=== PATIENT | female | born 1965 | race Two or more races ===

== ENCOUNTER 2021-11-24 06:16 | Day surgery (SDC) | payer OTHER ==
[2021-11-24] MEDS ORDERED: NEURONTIN600 M1 PO (09:11)
[2021-11-24] MEDS ORDERED: POLY119PG PO (09:11)
[2021-11-24] MEDS ORDERED: PERCOCET 5-3251 EACH PO (09:11)
== END 2021-11-24 15:03 | disposition home or self-care (01) ==
LOC: CIR.AMB 06:16
PROVIDERS: ATTEND Surgery
DX: K40.90 Unilateral inguinal hernia, without obstruction or gangrene, not specified as recurrent (principal); I10 Essential (primary) hypertension; Z86.16 Personal history of COVID-19; Z20.822 Contact with and (suspected) exposure to COVID-19
CPT/HCPCS: 49650; C1781

== ENCOUNTER 2025-06-11 07:00 | Inpatient (IN) | payer OTHER ==
[2025-06-09 09:10] VITALS: BP 126/82
[2025-06-09 10:03] LABS: BASO % 0.5 % (0.1-1.2); EOS # 0.14 (0.04-0.54); EOS % 1.1 % (0.7-7.0); LYMPH # 1.34 (1.18-3.74); LYMPH % 10.1 % (19.3-53.1); MEAN PLATELET VOLUME 9.40 fl (9.4-12.4); MONO # 1.06 (0.24-0.82); MONO % 8.0 % (4.7-12.5); NEUT # 10.61 (1.56-6.13); NEUT % 79.7 % (34.0-71.1); RED CELL DISTRIBUTION WIDTH 13.7 % (11.6-14.4)
[2025-06-09 10:21] LABS: URINE APPEARANCE Clear; URINE BILIRRUBIN Negative (NEGATIVE); URINE BLOOD Small; URINE COLOR Yellow; URINE GLUCOSE Negative (NEGATIVE); URINE KETONE Negative (NEGATIVE); URINE LEUKOCYTE Small; URINE NITRATE Negative; URINE PROTEIN Negative (NEGATIVE); URINE UROBILINOGEN 0.2 E.U./dl
[2025-06-09 10:24] LABS: URINE BACTERIA 8.3 uL (0.0-1933); URINE EPITHELIAL CELLS 3.5 uL (0.0-38.8); URINE RBC 3.2 uL (0.0-20.8); URINE WBC 37.8 uL (0.0-23.2)
[2025-06-09 10:30] LABS: URINE CAST 0.00 uL (0.0-1.40)
[2025-06-09 10:38] LABS: INR 0.95
[2025-06-09 10:43] LABS: BUN CREA RATIO 15.0 (7.0-25.0); CREATININE SERUM 1.08 mg/dL (0.70-1.30); GFR 70.22; GLUCOSE FASTING 86.0 mg/dL (65-100); OSMOLALITY SERUM 285.0 MOSM/KG (275-295)
[~2025-06-11] VITALS: Ht 182.9 cm; Wt 81.6 kg
[~2025-06-11 07:00] MED LIST: NEURONTIN600 M1 PO; PERCOCET 5-3251 EACH PO; POLY119PG PO
[2025-06-11] MEDS ORDERED: CEFTRIAXONE SODIUM 2,000 MG VIAL ONE (07:23)
[2025-06-11] MEDS ORDERED: METRONIDAZOLE/SODIUM CHLORIDE 500 MG/100 ML PIGGYBACK IV ONE (07:23)
[2025-06-11] MEDS ORDERED: BUPIVACAINE HCL/MPF 0.5% 30ML VIAL ONE (09:04)
[2025-06-11] MEDS ORDERED: ENOXAPARIN SODIUM 40 MG/0.4 ML SYRINGE SUBCUTANEO ONE (10:15)
[2025-06-11] MEDS ORDERED: SUGAMMADEX SODIUM 200 MG/2 ML VIAL IV ONE ×2 (10:27→10:56)
[2025-06-11] MEDS ORDERED: PERCOCET 5-3251 EACH PO (10:58)
[2025-06-11] MEDS ORDERED: POLY119PG PO (10:58)
[2025-06-11] MEDS ORDERED: NEURONTIN300 MG PO (10:58)
[2025-06-11] MEDS ORDERED: CELEBREX200MG PO (10:59)
[2025-06-11 19:42] LABS: BASO % 0.3 % (0.1-1.2); EOS # 0.04 (0.04-0.54); EOS % 0.3 % (0.7-7.0); LYMPH # 1.12 (1.18-3.74); LYMPH % 9.8 % (19.3-53.1); MEAN PLATELET VOLUME 9.80 fl (9.4-12.4); MONO # 1.05 (0.24-0.82); MONO % 9.2 % (4.7-12.5); NEUT # 9.17 (1.56-6.13); NEUT % 80.1 % (34.0-71.1); RED CELL DISTRIBUTION WIDTH 13.5 % (11.6-14.4)
[2025-06-11] MEDS ORDERED: NALOXONE HCL 0.4 MG/ML AMPUL ONE (19:47)
[2025-06-11 20:08] LABS: ALT/SGPT 23.0 U/L (12-78); AST/SGOT 22.0 U/L (15-37); BILIRUBIN TOTAL 0.4 mg/dL (0.3-1.2); BUN CREA RATIO 9.0 (7.0-25.0); CREATININE SERUM 0.76 mg/dL (0.70-1.30); GFR 105.34; GLOBULINA 2.8 G/DL (2.4-3.5); GLUCOSE FASTING 91.0 mg/dL (65-100); OSMOLALITY SERUM 283.0 MOSM/KG (275-295)
[2025-06-11] MEDS ORDERED: NALOXONE HCL 0.4 MG/ML AMPUL IV SCH (20:15)
[2025-06-12] MEDS ORDERED: ACETAMINOPHEN 500 MG GEL..CAP PO ONE (10:46)
[2025-06-12] MEDS ORDERED: ACETAMINOPHEN 500 MG GEL..CAP PO SCH ×2 (10:48→18:55)
[2025-06-12] MEDS ORDERED: 0.9 % SODIUM CHLORIDE 1,000 ML IV SCH (11:30)
[2025-06-12] MEDS ORDERED: PANTOPRAZOLE SODIUM 40 MG/VIAL VIAL IV SCH (11:32)
[2025-06-12] MEDS ORDERED: GABAPENTIN 250 MG/5 ML ML PO SCH ×2 (12:00)
[2025-06-12] MEDS ORDERED: ACETAMINOPHEN 160MG/5 ML BLIST.PACK PO SCH (12:00)
[2025-06-12] MEDS ORDERED: PANTOPRAZOLE SODIUM 40 MG/VIAL VIAL ONE (13:31)
[2025-06-12 17:29] LABS: BASO % 0.6 % (0.1-1.2); EOS # 0.13 (0.04-0.54); EOS % 1.5 % (0.7-7.0); LYMPH # 1.25 (1.18-3.74); LYMPH % 14.4 % (19.3-53.1); MEAN PLATELET VOLUME 9.50 fl (9.4-12.4); MONO # 1.04 (0.24-0.82); MONO % 12.0 % (4.7-12.5); NEUT # 6.20 (1.56-6.13); NEUT % 71.2 % (34.0-71.1); RED CELL DISTRIBUTION WIDTH 13.4 % (11.6-14.4)
[2025-06-12 18:17] LABS: BUN CREA RATIO 10.0 (7.0-25.0); CREATININE SERUM 0.73 mg/dL (0.70-1.30); GFR 110.35; GLUCOSE FASTING 80.0 mg/dL (65-100); OSMOLALITY SERUM 280.0 MOSM/KG (275-295)
[2025-06-12] MEDS ORDERED: KETOROLAC TROMETHAMINE 30 MG VIAL IV PRN (19:00)
[2025-06-12] MEDS ORDERED: KETOROLAC TROMETHAMINE 30 MG VIAL ONE (19:19)
[2025-06-12 21:57] VITALS: BP 127/77; O2SAT 94
[2025-06-12 22:30] VITALS: O2SAT 95
[2025-06-13 00:18] VITALS: BP 125/78; O2SAT 95
[2025-06-13 00:28] VITALS: O2SAT 90
[2025-06-13 03:38] VITALS: O2SAT 90
[2025-06-13 08:04] VITALS: BP 153/89; O2SAT 96
== END 2025-06-13 14:45 | disposition home or self-care (01) | DRG 352 ==
LOC: CIR.AMB 07:00 → SURH 06-12 20:05
PROVIDERS: Internal Medicine; Surgery; ADMIT Surgery; ATTEND Surgery
PROC: BW28ZZZ Computerized Tomography (CT Scan) of Head (ICD-10-PCS; 2025-06-11)
PROC: 0YU54JZ Supplement Right Inguinal Region with Synthetic Substitute, Percutaneous Endoscopic Approach (ICD-10-PCS; principal; 2025-06-11 12:30)
PROC: BW38ZZZ Magnetic Resonance Imaging (MRI) of Head (ICD-10-PCS; 2025-06-12)
PROC: 4A12X4Z Monitoring of Cardiac Electrical Activity, External Approach (ICD-10-PCS; 2025-06-12)
DX: K40.90 Unilateral inguinal hernia, without obstruction or gangrene, not specified as recurrent (principal); I10 Essential (primary) hypertension; R41.0 Disorientation, unspecified; T50.995A Adverse effect of other drugs, medicaments and biological substances, initial encounter; Y92.234 Operating room of hospital as the place of occurrence of the external cause
CPT/HCPCS: 70551